=== PATIENT | female | born 1985 | race Caucasian/White ===

== ENCOUNTER → 2021-11-10 09:08 | Outpatient (BNVA) | payer OTHER, SELFPAY | PROVIDERS: PCP Registered Nurse; Referring Provider Registered Nurse; Visit Provider Surgery ==

== ENCOUNTER → 2021-11-12 08:05 | Outpatient (BNVA) | payer OTHER, SELFPAY | PROVIDERS: PCP Registered Nurse; Visit Provider Dietitian, Registered | DX: E66.9 Obesity, unspecified (principal); Z68.36 Body mass index [BMI] 36.0-36.9, adult | CPT/HCPCS: 97802 ==

== ENCOUNTER → 2021-11-13 16:30 | Outpatient (BNVA) | payer OTHER, SELFPAY | PROVIDERS: PCP Registered Nurse; Visit Provider Counselor Mental Health | DX: F50.81 Binge eating disorder (principal) | CPT/HCPCS: 90791 ==

== ENCOUNTER 2021-11-14 12:56 | Outpatient (REF) | payer OTHER, SELFPAY ==
--- NOTE | ~2021-11-14 | XR_ITS ---
EXAMINATION: XR CHEST CLINICAL INFORMATION: Obesity COMPARISON: None TECHNIQUE: 2 views of the chest were obtained. FINDINGS: No significant abnormality is noted involving the heart, lungs, mediastinum, bony thorax or soft tissues. XR/XR chest 2V IMPRESSION: Unremarkable examination.
--- NOTE | 2021-11-14 15:28 | ECG_ITS ---
Test Reason : E66.9 Blood Pressure : / mmHG Vent. Rate : 084 BPM Atrial Rate : 084 BPM P-R Int : 134 ms QRS Dur : 078 ms QT Int : 376 ms P-R-T Axes : 025 029 -03 degrees QTc Int : 444 ms Normal sinus rhythm Normal ECG No previous ECGs available Referred By: Jennifer Chi Electronically Signed By:Thor Mays
== END 2021-11-14 12:57 | disposition home or self-care (01) ==
LOC: HO.XRAY 12:56
PROVIDERS: PCP Registered Nurse; Referring Provider Registered Nurse; Visit Provider Surgery
DX: E66.9 Obesity, unspecified (principal); Z68.36 Body mass index [BMI] 36.0-36.9, adult; K21.9 Gastro-esophageal reflux disease without esophagitis; G47.33 Obstructive sleep apnea (adult) (pediatric); Z99.89 Dependence on other enabling machines and devices
CPT/HCPCS: 71046; 93005

== ENCOUNTER → 2021-11-17 08:05 | Outpatient (BNVA) | payer OTHER, SELFPAY | PROVIDERS: PCP Registered Nurse; Visit Provider Surgery ==

== ENCOUNTER 2021-11-24 11:01 | Outpatient (REF) | payer OTHER, SELFPAY ==
[2021-11-26 16:18] LABS: H Pylori Breath Test Negative (Negative)
== END 2021-11-24 11:02 | disposition home or self-care (01) ==
LOC: CF 11:01
PROVIDERS: Visit Provider Surgery
DX: Z11.0 Encounter for screening for intestinal infectious diseases (principal)
CPT/HCPCS: 36415; 83013; 99211

== ENCOUNTER 2021-11-27 06:06 | Inpatient (IN) | payer OTHER, SELFPAY ==
[2021-11-17 09:28] VITALS: BMI 35.6
[2021-11-18 10:53] LABS: MANUAL DIFF FLAG NO
[2021-11-18 11:02] LABS: Basophils Percent Auto 0.6 % (0-2); Eosinophils Absolute Auto 0.1 X10*3/uL (0.0-0.4); Eosinophils Percent Auto 1.2 % (0-4); Hematocrit 43.2 % (37.0-47.0); Imm Gran Abs Auto 0.02 X10*3/uL (0.00-0.03); Imm Gran Pct Auto 0.3 % (0.0-0.4); Lymphocytes Absolute Auto 1.8 X10*3/uL (1.2-4.9); Lymphocytes Percent Auto 27.1 % (20-40); Mean Corpuscular HGB Conc 32.4 g/dl (31.0-35.0); Mean Corpuscular Volume 89.6 fL (80.0-98.0); Mean Platelet Volume 9.3 fL (9.4-12.3); Monocytes Absolute Auto 0.5 X10*3/uL (0.1-1.2); Monocytes Percent Auto 7.3 % (2-11); Neutrophils Absolute Auto 4.3 x10*3/uL (2.0-8.3); Neutrophils Percent Auto 63.5 % (45-73); Platelet Count 265 X10*3/uL (160-400); Red Blood Count 4.82 X10*6/uL (4.20-5.50); Red Cell Distribution Width 12.8 % (11.0-16.0); White Blood Count 6.8 X10*3/uL (4.8-10.8)
[2021-11-18 11:11] LABS: INTERNATIONAL NORM RATIO 1.1 (0.9-1.1)
[2021-11-18 11:14] LABS: Partial Thromboplastin Time 38.7 SEC (24.1-38.0)
[2021-11-18 11:17] LABS: Estimated Average Glucose 105 mg/dL; Hemoglobin A1c % 5.3 %
[2021-11-18 11:42] LABS: Alanine Aminotransferase 19 U/L (0-31); Albumin Level 4.4 g/dL (3.5-5.0); Alkaline Phosphatase 70 U/L (39-117); Anion Gap 13 (12-20); Aspartate Amino Transferase 17 U/L (5-31); Bilirubin Total 0.5 mg/dL (0.0-1.0); Blood Urea Nitrogen 12 mg/dL (9-16); C Reactive Protein 0.28 mg/dL (< or = 0.50); Calcium 9.6 mg/dL (8.4-10.2); Carbon Dioxide 25 mmol/L (22-29); Chloride 104 mmol/L (96-108); Cholesterol 197 mg/dL; Creatinine Clr Calc Pharmacy 110.8; Estimated Glomerular Filt Rate > 60; Glucose Random 92 mg/dL (60-115); HDL Cholesterol 33 mg/dL; LDL Cholesterol Calculated 140 mg/dl; Potassium 4.2 mmol/L (3.3-5.1); Sodium 138 mmol/L (135-145); Triglycerides 124 mg/dL
[2021-11-18 12:05] LABS: Insulin 17 uU/mL (2-29); TSH reflex Free T4 1.29 uIU/mL (0.32-4.0)
--- NOTE | 2021-11-22 01:48 | P.HPSUR_ITS ---
Pre-Procedural Eval Section A Date of Service: 11/22/21 The patient is an INPATIENT: Yes The History & Physical has been completed within 30 days and I have reviewed it.: Yes Section B Chief Complaint: obesity Relevant Family History (Specify if Yes): No Relevant Social History: None Present Medications: None Medical History: No relevant PMH History of Previous Operations: No relevant previous surgery Allergies: Allergies Allergy/AdvReac Type Severity Reaction Status Date / Time latex Allergy Mild mild Verified 11/17/21 10:46 sensitivity w/latex gloves Review of Systems Sugical H&P ROS: Negative: Constitution, Cardiovascular, Respiratory, Neurological, Psychiatric, Hem-Onc, Allergic/Immunologic, Gastrointestinal, Genitourinary, Musculoskeletal, Integumentary, Endocrine and Eyes/Ears/N ose/Throat Plan Diagnosis/Plan: Unchanged I have reviewed the history and physical and performed a pertinent physical examination on my patient. No changes have occurred unless specified.
--- NOTE | 2021-11-26 08:14 | P.CONAN_ITS ---
Documented by User: Alayna Amanda NP 11/26/21 08:15 HPI - Anesthesia Eval Consult details Narrative: 36yo F for Gastrectomy Sleeve,EGD,poss diaphragmatic hernia,poss ventral hernia,poss open, PMFSH Active Problems Active Problems: All Active Problems (Updated 11/18/21 @ 18:09 by Shaquille Oleary MD) Constipation (Acute) Obesity (Acute) BMI 36.0-36.9,adult (Acute) Binge-eating disorder, mild (Acute) Back pain (Acute) Migraines (Acute) Depression (Acute) GERD (gastroesophageal reflux disease) (Acute) Obstructive sleep apnea on CPAP (Acute) Past Medical History Medical History (Updated 11/27/21 @ 09:58 by Shaquille Oleary MD) Back pain COVID-19 vaccine series completed Depression GERD (gastroesophageal reflux disease) Heart murmur Hiatal hernia History of COVID-[address] Obstructive sleep apnea on CPAP Surgical History Surgical History (Updated 11/27/21 @ 09:58 by Shaquille Oleary MD) Hx of section Hx of colonoscopy Social History Social History (Updated 11/10/21 @ 09:21 by Birgit Samson LPN) Are you a primary child care centre director to a significant other at home: No Do you presently have visiting nurse or other home services: No Alcohol intake: current Alcohol intake frequency: does not drink Patient Tobacco Use Status: Never used Tobacco Use of substances other than those prescribed or required for medical reasons: No Currently Displaying Signs/Symptoms of Drug Intoxication Withdrawal: No Have you been hit, kicked, punched, or otherwise hurt by someone within the past year? If so, by whom?: No Are you DNR?: No Advance Directives: No (states primary contact is boyfriend) Advance Directives Information Provided: Yes (brochure mailed) Advance Directives on File: No Recently lost weight without trying: No Eating poorly because of decreased appetite: No Nutrition Risks: No Nutritional Risk Patient : No FDLMP: 10/18/21 : No Poor oral hygiene: No Meds Allergies Allergy/AdvReac Type Severity Reaction Status Date / Time latex Allergy Mild mild Verified 11/17/21 10:46 sensitivity w/latex gloves Home Medications Medication Instructions Recorded Confirmed Last Taken Type cetirizine 10 mg tablet (Zyrtec) 10 mg PO DAILY 11/10/21 11/17/21 11/27/21 History cholecalciferol (vitamin D3) 25 50 mcg PO DAILY 11/10/21 11/17/21 Unknown History mcg (1,000 unit) tablet desvenlafaxine succinate 100 mg 100 mg PO DAILY 11/10/21 11/17/21 Unknown History tablet,extended release 24 hr (Pristiq) multivitamin 1 tab PO DAILY 11/10/21 11/17/21 Unknown History psyllium husk (with sugar) 2.5 2 wafer PO DAILY 11/10/21 11/17/21 Unknown History gram oral wafer (Metamucil Fiber Thin) etonogestrel 68 mg subdermal 68 mg SUBDERMAL ONCE 11/17/21 11/17/21 11/17/21 History implant (Nexplanon) Exam Exam Date and Time: November 26, [id number] Height,Weight and Vital Signs: Height 5 ft 3 in Weight 91.172 kg Pertinent Lab Results Pertinent Lab Results: Laboratory Tests 11/18/21 11/18/21 11/18/21 10:50 10:50 10:50 WBC 6.8 RBC 4.82 Hgb 14.0 Hct 43.2 MCV 89.6 MCH 29.0 MCHC 32.4 RDW 12.8 Plt Count 265 MPV 9.3 L Immature Gran % (Auto) 0.3 Neut % (Auto) 63.5 Lymph % (Auto) 27.1 [place] % (Auto) 7.3 Eos % (Auto) 1.2 Baso % (Auto) 0.6 Lymph # (Auto) 1.8 [place] # (Auto) 0.5 Eos # (Auto) 0.1 Baso # (Auto) 0.0 Abs Immat Gran (auto) 0.02 Absolute Neuts (auto) 4.3 Absolute Nucleated RBC 0.000 Nucleated RBC % (auto) 0.0 PT 13.0 INR 1.1 APTT 38.7 H Sodium 138 Potassium 4.2 Chloride 104 Carbon Dioxide 25 Anion Gap 13 BUN 12 Creatinine 0.76 Estim Creat Clear Calc 110.8 Estimated GFR > 60 Random Glucose 92 Estimat Average Glucose Hemoglobin A1c % Insulin Level 17 Calcium 9.6 Total Bilirubin 0.5 AST 17 ALT 19 Alkaline Phosphatase 70 C-Reactive Protein 0.28 Total Protein 7.0 Albumin 4.4 Triglycerides 124 Cholesterol 197 LDL Cholesterol, Calc 140 HDL Cholesterol 33 TSH 1.29 Blood Type Antibody Screen 11/18/21 11/18/21 10:50 10:50 WBC RBC Hgb Hct MCV MCH MCHC RDW Plt Count MPV Immature Gran % (Auto) Neut % (Auto) Lymph % (Auto) [place] % (Auto) Eos % (Auto) Baso % (Auto) Lymph # (Auto) [place] # (Auto) Eos # (Auto) Baso # (Auto) Abs Immat Gran (auto) Absolute Neuts (auto) Absolute Nucleated RBC Nucleated RBC % (auto) PT INR APTT Sodium Potassium Chloride Carbon Dioxide Anion Gap BUN Creatinine Estim Creat Clear Calc Estimated GFR Random Glucose Estimat Average Glucose 105 Hemoglobin A1c % 5.3 Insulin Level Calcium Total Bilirubin AST ALT Alkaline Phosphatase C-Reactive Protein Total Protein Albumin Triglycerides Cholesterol LDL Cholesterol, Calc HDL Cholesterol TSH Blood Type O Positive Antibody Screen NEGATIVE Narrative Narrative: EKG 11/2021 Vent. Rate : 084 BPM ? ? Atrial Rate : 084 BPM ?? P-R Int : 134 ms? QRS Dur : 078 ms ? ? QT Int : 376 ms ? ? ? P-R-T Axes : 025 029 -03 degrees ?? QTc Int : 444 ms ? Normal sinus rhythm Normal ECG No previous ECGs available Assessment and Plan Assessment Anesthesia Assessment: Chart Reviewed Documented by User: Thanh Negrete MD 11/27/21 16:40 [facility] Past Medical History Medical History (Updated 11/27/21 @ 09:58 by Shaquille Oleary MD) Back pain COVID-19 vaccine series completed Depression GERD (gastroesophageal reflux disease) Heart murmur Hiatal hernia History of COVID-[address] Obstructive sleep apnea on CPAP Functional capacity: independent ambulation Family History Family history of problems with anesthesia: No Surgical History Surgical History (Updated 11/27/21 @ 09:58 by Shaquille Oleary MD) Hx of section Hx of colonoscopy History of Problems with Anesthesia: No Social History Social History (Updated 11/10/21 @ 09:21 by Birgit Samson LPN) Are you a primary child care centre director to a significant other at home: No Do you presently have visiting nurse or other home services: No Alcohol intake: current Alcohol intake frequency: does not drink Patient Tobacco Use Status: Never used Tobacco Use of substances other than those prescribed or required for medical reasons: No Currently Displaying Signs/Symptoms of Drug Intoxication Withdrawal: No Have you been hit, kicked, punched, or otherwise hurt by someone within the past year? If so, by whom?: No Are you DNR?: No Advance Directives: No (states primary contact is boyfriend) Advance Directives Information Provided: Yes (brochure mailed) Advance Directives on File: No Recently lost weight without trying: No Eating poorly because of decreased appetite: No Nutrition Risks: No Nutritional Risk Patient : No FDLMP: 10/18/21 : No Poor oral hygiene: No Meds Allergies Allergy/AdvReac Type Severity Reaction Status Date / Time latex Allergy Mild mild Verified 11/17/21 10:46 sensitivity w/latex gloves Home Medications Medication Instructions Recorded Confirmed Last Taken Type cetirizine 10 mg tablet (Zyrtec) 10 mg PO DAILY 11/10/21 11/17/21 11/27/21 History cholecalciferol (vitamin D3) 25 50 mcg PO DAILY 11/10/21 11/17/21 Unknown History mcg (1,000 unit) tablet desvenlafaxine succinate 100 mg 100 mg PO DAILY 11/10/21 11/17/21 Unknown History tablet,extended release 24 hr (Pristiq) multivitamin 1 tab PO DAILY 11/10/21 11/17/21 Unknown History psyllium husk (with sugar) 2.5 2 wafer PO DAILY 11/10/21 11/17/21 Unknown History gram oral wafer (Metamucil Fiber Thin) etonogestrel 68 mg subdermal 68 mg SUBDERMAL ONCE 11/17/21 11/17/21 11/17/21 History implant (Nexplanon) Exam Airway Mallampati Class: II TM Dist: >3cm Neck ROM: Full Loose/Missing/Broken Teeth: Yes Heart: rrr Lungs: bl breath sounds Assessment and Plan Assessment Anesthesia Assessment: Anesthesia Plan Discussed Final Anesthetic Review Family History of Problems with Anesthesia: No History of Problems with Anesthesia: No NPO: Yes ASA Class: III Final Preanesthetic Review: Meds/Allgs Chart Reviewed, Consent Obtained/Reviewed and Anes Risks/Benef Reviewed Patient Risk: High Procedure Risk: Intermediate Anesthetic Plan Anesthetic Plan: GA Disposition: Inp. Admit - Standard Bed
[2021-11-26 12:26] LABS: COVID-19 Test Negative (Negative)
[2021-11-27] VITALS (17 sets, daily range): BP systolic 99–160; BP diastolic 62–99; PULSE 105–134; RESP 14–20; TEMP 36.1–37.1; O2SAT 94–100
[2021-11-27 06:32] LABS: UPreg QC Valid YES; Urine Pregnancy NEGATIVE (NEGATIVE)
[2021-11-27] MEDS: Lactated Ringers 1,000 ML 100 ML IVCONT ×3 (06:52→20:45)
[2021-11-27] MEDS: Lactated Ringers 1,000 ML 999 ML IV (06:53)
--- NOTE | 2021-11-27 09:52 | PM.OP ---
Brief Operative Note Date of Service: 11/27/21 Pre-op diagnosis: Severe obesity with comorbidities (see below) Post-op diagnosis: same Procedure: INITIAL PATIENT BMI ON PRESENTATION AT OUR OFFICE: 36.3 kg/m2 LAST BMI BEFORE SURGERY: 35.5 kg/m2 COMORBIDITIES: sleep apnea on CPAP, GERD, Depression, back pain, migraines, diaphragmatic hernia ?The patient presented to the Weight Management Program with significant obesity that was negatively impacting the patient's comorbidities as listed above.? The program is a phased program with a special focus on preoperative medical weight management to promote substantial weight loss and prepare the patients for the second phase of the program: bariatric surgery. The patient participated in an intensive weekly lifestyle ?intervention and exercise program during which the patient ?has lost between the initial office visit and the last preoperative visit 4 lbs, or 1.96% of initial actual body weight. It was deemed appropriate for the patient to now have bariatric surgery. In light of the current Covid-19 pandemic and the well documented strong association of obesity and increased risk of worse outcomes if infected with Covid-19 (REFERENCES:https://pubmed.ncbi.nlm.nih.gov/82911113/,?https://pubmed.ncbi.nlm.nih.gov/21442332/), any delay in undergoing bariatric surgery may lead to the patient's worsening health condition and increased?risk of more severe Covid-19 disease if infected. In addition a recent?study from [facility] published in [employer] on 09/08/2021 ([email or web address]) found that, among patients with obesity, substantial weight loss achieved with surgery was associated with improved outcomes of COVID-19 infection. The findings suggest that obesity can be a modifiable risk factor for the severity of COVID-19 infection. In addition, the patient met the BMI-criteria for bariatric surgery based on the BMI on initial presentation. The patient should not be penalized for achieving such weight loss because ?it is not sustainable long-term without surgical intervention and it was achieved in preparation for bariatric surgery ?under my direction and based on my published research ([email or web address] and?https://www.soard.org/article/[email or web address](71)69131-X/pdf) ?that a 10% preoperative weight loss improves long-term weight loss after surgery and reduces perioperative complications.? Insurance carriers such as [facility] have endorsed my recommendations ?and have included in their policies criteria to include a 10% preoperative weight loss requirement. PROCEDURE: Esophago-gastroscopy, laparoscopic sleeve gastrectomy and laparoscopic gastropexy INDICATIONS: This is a 36 year-old female who was electively scheduled for laparoscopic, possibly open sleeve gastrectomy. The risks and complications of the procedure were discussed with the patient in advance, particularly the possibility of ; pulmonary embolism; staple line leak; bleeding; GERD; cardiac, pulmonary, or renal complications; as well as long-term problems such as insufficient weight loss, vitamin deficiency, strictures, or ulcers. The patient understood all the risks, and was in agreement to proceed with surgery. DESCRIPTION OF PROCEDURE: After informed consent was obtained from the patient, the patient was given preoperative antibiotics, and was transferred to the operating room. After successful induction of general anesthesia, pneumatic compression devices were placed on both lower extremities. An upper endoscopy was performed next. The oropharynx and esophagus appeared to be within normal limits. There was no diaphragmatic hernia present. The stomach was entered. Then after all fluid and air were suctioned and the stomach was fully decompressed, the scope was withdrawn and secured in the mid esophagus. The patient was then prepped and draped in the usual sterile manner, and abdominal access was established at the right upper quadrant with the Emir technique. A 12 mm blunt port was inserted, and the abdomen was insufflated with CO2 to a pressure of 15 mmHg. Under direct visualization, additional ports were placed, specifically two 5 mm Versi-step ports to the left upper quadrant, and a 5 mm Versi-Step port to the right upper quadrant. 1% lidocaine plain was used to infiltrate all port sites as well as all fascia defects. Following that, the patient was placed in a steep reverse Trendelenburg position. An additional 5 mm port was placed to the right flank for the Mediflex retractor that was used to retract the left lobe of the liver. The gastro-esophageal fat pad was opened with the ultrasonic device (Thsravanerbeat, Olympus) and the anterior esophagus and hiatus were exposed. The angle of His was opened with the ultrasonic device the fundus of the stomach from any diaphragmatic and splenic attachments. I then opened the gastrocolic ligament between the transverse colon and the greater curvature of the stomach with the ultrasonic device to enter the lesser sac and facilitate the ligation of the short gastric vessels. I started at a mid-point along the greater curvature and using the Thunderbeat, all short gastric vessels were divided all the way to the angle of His until the left qi was completely dissected at its entirety. I then divided the gastro-colic ligament distally to a distance of about 3-4 cm proximal to the pylorus. The stomach was then divided transversely with one Endo RAINA-45 purple, one RAINA-45 orange load and four RAINA-60 articulating orange loads using the AEON stapler and loads. Every effort was made that the gastric sleeve had a tubular shape and an even caliber throughout. Once the sleeve resection was completed, the staple line of the gastric sleeve was reinforced with Hemoclips. The resected stomach was retrieved without difficulty from the Emir port. A gastropexy was then performed in order to prevent postoperative GERD and partial gastric volvulus. Several interrupted 2.0 Surgidac sutures were placed between the sleeve's staple line and the previously divided greater omentum and gastro-colic ligament using the Endo-Stitch device. ?An upper endoscopy was performed. There was no narrowing at the GE junction. The scope was easily advanced all the way to the pylorus which was clearly visualized. There was no narrowing anywhere and the sleeve's caliber was even throughout. The sleeve's staple line was inspected and there was no evidence of ischemia, bleeding or dehiscence. At that point the gastroscope was withdrawn from the patient?s mouth while we were decompressing the bowel and the stomach from any remaining air. I looked into the lesser sac to see how the sleeve was situating and it was situating well. There was no bleeding from the staple line, spleen, or short gastric vessels. The Mediflex retractor was removed, and the undersurface of the liver was inspected and there was no bleeding. The patient was placed in supine position. I closed the fascial defect of the 12 mm port site with a figure of eight #1 Polysorb suture. Then 100 cc 0.25 % Marcaine plain with 10 mg of Dexamethasone were used to infiltrate the fascial closure as well as all skin incisions. At this point, the abdomen was deflated, all ports were removed under direct vision, and no bleeding was noted from any of the port sites. The skin incisions were irrigated with saline and were closed with 4-0 absorbable monofilament sutures. Steri-Strips and OpSites were used to cover all incisions. The patient was extubated and was transferred in stable condition to the recovery room for further care. I was present and performed all pope parts of the procedure. 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 There were no residents to assist with this case. Rosas Oleary MD, PhD, FACS Surgeon: Shaquille Oleary MD Anesthesia: GETA, local and other (TAP block) Was an Quality Assistant used for this Procedure?: Yes Quality Assistant: Meghan Perez Estimated blood loss (mL): 10 IV fluids (mL): 3,000 Urine output (mL): 0 (No Paredes to gravity) Pathology: other (Stomach) Condition: stable Disposition: PACU
--- NOTE | 2021-11-27 09:56 | PM.PNGS ---
Subjective Subjective Date of Service: 11/27/21 Interval history: Patient has mild incisional pain, but was able to ambulate and use the incentive spirometer. She is tolerating phase 1 bariatric diet Physical Exam Vital Signs: Vital Signs: Last Vital Signs Temp 97 F 11/27/21 06:09 Pulse 108 H 11/27/21 06:09 Resp 17 11/27/21 06:09 BP 132/80 11/27/21 06:09 Pulse Ox 97 11/27/21 06:09 BMI result Body Mass Index 35.6 GI: Inspection: Yes normal to inspection, Yes incision (clean, dry and intact ) and Yes obesity Extrem: Right lower extremity: normal to inspection (no calf tenderness) Left lower extremity: normal to inspection (no calf tenderness) Objective Data Active Medications Fentanyl (Fentanyl Citrate/Pf 100 Mcg/2 Ml Vial) 25 mcg IVPUSH Q5M PRN; Protocol PRN Reason: Pain, Moderate (Pain Scale 4-6 Hydromorphone HCl (Hydromorphone Hcl 0.5 Mg/0.5 Ml Syringe) 0.25 mg IVPUSH Q5M PRN; Protocol PRN Reason: Pain, Severe (Pain Scale 7-10) Lactated Ringer's (Lr) 1,000 mls @ 100 mls/hr IVCONT .Q10H LAYO Last Admin: 11/27/21 06:52 Dose: 100 mls/hr Documented by: ELIO Promethazine HCl 12.5 mg/ (Sodium Chloride) 50.5 mls @ 202 mls/hr IV ONCE PRN PRN Reason: Nausea and Vomiting Labs CBC & Chem 7: 11/18/21 10:50 11/18/21 10:50 Labs: Laboratory Results - last 24 hr 11/26/21 11/27/21 12:00 06:17 Urine Test NEGATIVE COVID-19 (CARLYLE) Negative COVID-19 Clin Com See Note Progress Note: A&P Assessment and plan (1) Status post sleeve gastrectomy: Status: Acute Assessment and Plan: s/p laparoscopic sleeve gastrectomy, lysis of adhesions repair of diaphragmatic hernia, and gastropexy Doing well Check am labs. If OK, will discharge home? (2) Obesity: Status: Acute (3) BMI 35.0-35.9,adult: Status: Acute (4) GERD (gastroesophageal reflux disease): Status: Acute (5) Obstructive sleep apnea on CPAP: Status: Acute (6) Depression: Status: Acute (7) Migraines: Status: Acute (8) Back pain: Status: Acute (9) Diaphragmatic hernia: Status: Acute Fall Risk Details Current Medications: Current Medications Fentanyl (Fentanyl Citrate/Pf 100 Mcg/2 Ml Vial) 25 mcg IVPUSH Q5M PRN; Protocol PRN Reason: Pain, Moderate (Pain Scale 4-6 Hydromorphone HCl (Hydromorphone Hcl 0.5 Mg/0.5 Ml Syringe) 0.25 mg IVPUSH Q5M PRN; Protocol PRN Reason: Pain, Severe (Pain Scale 7-10) Lactated Ringer's (Lr) 1,000 mls @ 100 mls/hr IVCONT .Q10H LAYO Last Admin: 11/27/21 06:52 Dose: 100 mls/hr Documented by: Promethazine HCl 12.5 mg/ (Sodium Chloride) 50.5 mls @ 202 mls/hr IV ONCE PRN PRN Reason: Nausea and Vomiting Time Spent With Patient Time: Total time spent is greater than 50% in coordination of care (as documented) at patient's floor/unit and/or counseling patient: Quality Stroke Does the patient have a stroke diagnosis?: No VTE Prior VTE?: No VTE Risk Level:: Surgical - moderate VTE Device Contraindication: N/A - Device Ordered VTE Drug Contraindication: Treatment Not Indicated
--- NOTE | 2021-11-27 10:06 | PM.DS ---
DS: Providers Provider Date of Service: 11/28/21 Date of admission: 11/27/21 06:06 Primary care physician: JANET Galarza DS: Diagnosis Discharge Diagnosis (1) Status post sleeve gastrectomy: Status: Acute (2) Obesity: Status: Acute (3) BMI 35.0-35.9,adult: Status: Acute (4) GERD (gastroesophageal reflux disease): Status: Acute (5) Obstructive sleep apnea on CPAP: Status: Acute (6) Depression: Status: Acute (7) Migraines: Status: Acute (8) Back pain: Status: Acute (9) Diaphragmatic hernia: Status: Acute DS: Summary Hospital Course Hospital Course: ADMITTING DIAGNOSIS: morbid obesity, JOYCE, migraines DISCHARGE DIAGNOSIS: same, s/p laparoscopic sleeve gastrectomy PAST SURGICAL HISTORY: section PROCEDURE: upper endoscopy, laparoscopic sleeve gastrectomy DISCHARGE SUMMARY: History of Present Illness: The patient is a 36 year-old woman with a BMI of 36.2 kg/m2 and associated co-morbidities as described above. The patient had extensive work-up, preoperatively and was electively scheduled for laparoscopic, possible open sleeve gastrectomy and gastropexy. Risks and complications of the surgery were discussed with the patient in advance, particularly the possibility of , pulmonary embolism, anastomotic leak, bleeding, bowel injury, GERD, cardiac, renal or pulmonary complications. The patient understood all the risks and was in agreement with the surgical plan. Hospital Course: The patient underwent an uneventful laparoscopic sleeve gastrectomy with gastropexy on the day of admission. Postoperatively, the patient was transferred to the surgical floor. The patient received IV Acetaminophen and IV dilaudid for pain control. Patient was started on bariatric phase 1 diet POD #0. On postoperative day one, the patient was feeling well without nausea, vomiting, fevers, or tachycardia. The patient had some mild incisional pain and the abdomen was soft. On the morning of postoperative day one, the patient was continued on 1 ounce of water or ice every half hour. During the day, the patient did fairly well, having some incisional pain, but able to ambulate adequately and to tolerate liquids well. Since the patient is doing well, we decided that the patient was ready to be discharged. The patient was given instructions to follow-up with me next week and to call my office for any fever over 101, persistent abdominal pain, nausea, vomiting, GERD, symptoms of DVT such as calf tenderness, or leg swelling, or pulmonary embolism such as chest pain or shortness of breath. The patient was also instructed to drink 40-60 ounces of liquids per day using the 1-ounce cups. The patient had been given prescriptions for Tylenol for pain, Zofran prn for nausea, and pantoprazole and carafate previously. The patient was encouraged to ambulate and use the incentive spirometer. The patient was allowed to shower, but no baths, and encouraged to stay active at home. All of these instructions were given to the patient personally. All questions were answered and the patient understood all instructions, the instructions were also given to the patient in print. Time Spent with Patient Time attestation: Total time spent providing and/or coordinating discharge services: Discharge coordination time: Less than 30 minutes Quality: Stroke Does the patient have a stroke diagnosis?: No Physical Exam Vital Signs: Vital Signs: Last Vital Signs Temp 97.1 F 11/27/21 10:00 Pulse 107 H 11/27/21 10:00 Resp 17 11/27/21 10:00 BP 114/71 11/27/21 10:00 Pulse Ox 97 11/27/21 10:00 BMI result Body Mass Index 35.6 DS: Data Data Completed and Pending Pending studies at discharge: Pending at discharge 11/27/21 09:07 Surgical [PTH] Routine Labs on day of discharge: Laboratory Results - last 24 hr 11/26/21 11/27/21 12:00 06:17 Urine Test NEGATIVE COVID-19 ([facility]) Negative COVID-19 Clin Com See Note Discharge Plan Discharge Anticipated Discharge Date/Time: 11/28/21 10:04 Patient Disposition: Home, Self-Care Discharge Diagnosis: s/p sleeve gastrectomy Referrals: Jennifer Chi FNP [Primary Care Provider] - 1 Week Discharge Medications: Continued Nexplanon 68 mg Implant 68 mg SUBDERMAL ONCE 0RF desvenlafaxine succinate [Pristiq] 100 mg tablet extended release 24 hr 100 mg PO DAILY 0RF cetirizine [Zyrtec] 10 mg tablet 10 mg PO DAILY 0RF pantoprazole 40 mg tablet,delayed release (DR/EC) 40 mg PO DAILY Qty: 30 2RF sucralfate 100 mg/mL suspension 10 ml PO BID Qty: 400 2RF ondansetron HCl 4 mg tablet 4 mg PO Q12H Qty: 20 0RF Discontinued docusate sodium [Colace] 100 mg capsule 100 mg PO DAILY Qty: 30 2RF cholecalciferol (vitamin D3) 25 mcg (1,000 unit) tablet 50 mcg PO DAILY 0RF Metamucil Fiber Thin 2.5 gram wafer 2 wafer PO DAILY 0RF multivitamin Tablet 1 tab PO DAILY 0RF polyethylene glycol 3350 [Miralax] 17 gram powder in packet 17 g PO DAILY Qty: 14 0RF Rx Instructions: Mix each packet with 8oz of water and do 7 packets on 11/25/21 and another 7 packets on 11/26/21 Discharge Orders: Discharge Order (Routine); Ordered 11/28/21 Ordered By: Meghan Perez Diet: other Activity on Discharge: No heavy lifting Stand Alone Forms: Patient Portal Discharge page Care Plan Goals: No tub baths, sex or returning to work until discussed at first post op appointment. No exercise, alcohol, tobacco or illegal drug use. Continue to use incentive spirometer hourly while awake. Walk in home for 5- 10 minutes every 2 hours during the first week. Continue phase 1 diet today and start phase 2 diet tomorrow morning. Follow all instructions in the bariatric handbook and call with any questions. 1. Please call your doctor or come back to the emergency room should any new symptoms arise. 2. You will receive a courtesy call from [facility] 24-48 hours after discharge. 3. Activity: abstain from alcohol, practice limited stair climbing, no bending, no driving, no exercise, no illicit substances, no lifting, no sex, no tub bath, no work. 4. Diet: continue as discussed with Dr. Oleary. 5. Dressing Change/Wound Care: Do not change or remove surgical dressings unless they are wet or soiled. 6. Call your doctor if: - Your temperature exceeds 101.5 F - You experience excessive pain or swelling - You have an unexpected reaction to medication - You have excessive bleeding - You experience continued vomiting/nausea - Your incision begins to separate - Your incision shows signs of infection such as increased redness, swelling, excessive pain, heat, or drainage (light blood or clear fluid is normal) 7. General instructions: No lifting greater than 5 lbs for the next 4 weeks[address] within 24 hours of taking narcotic pain medications. If you do not move your bowels in the next 2 days, please take milk of magnesia over the counter. Please follow the post op diet and do not advance your diet until you are seen in the office in about 2 weeks. Please walk around your home every hour or two to prevent blood clots from forming in your legs. You do not need to wake from sleeping to walk. Please sleep in a bed or couch to prevent kinking at the hips and knees. Please take your incentive spirometer (your lung pipeline gang supervisor) home with you and use it for the next few days to prevent pneumonias. You may shower, no hot tubs, baths or swimming pools. Please call the office with any questions or concerns such as increasing abdominal pain, fever, chills, shortness of breath, chest pain, leg pain or swelling, or redness or drainage from your incisions. Do not hesitate to contact the office with any questions at . The patient's medical history has been reviewed and they are considered low risk for post op DVT and therefore DVT prophylaxis is not considered necessary. Travel after surgery was reviewed. The patient has not disclosed any travel plans during the first 30 days after surgery and they have been advised that within the first 30 days after surgery any bus, plane, train or car travel over 2 hours in duration is contraindicated due to the possibility of developing blood clots from immobility. Any travel, needs to include periods of ambulation of 10 minutes in duration every 2 hours. The patient was instructed to discuss any plans for travel during this period with their bariatric surgeon. Health Concerns: obesity Plan of Treatment: weight loss Assessment: stable, post op sleeve gastrectomy
[2021-11-27 10:31] LABS: Hematocrit 38.9 % (37.0-47.0); Hemoglobin 12.6 g/dl (12.0-16.0)
[2021-11-27 10:51] LABS: Anion Gap 12 (12-20); Blood Urea Nitrogen 8 mg/dL (9-16); Calcium 8.3 mg/dL (8.4-10.2); Carbon Dioxide 25 mmol/L (22-29); Chloride 105 mmol/L (96-108); Creatinine Clr Calc Pharmacy 109.3; Estimated Glomerular Filt Rate > 60; Glucose Random 142 mg/dL (60-115); Potassium 3.9 mmol/L (3.3-5.1); Sodium 138 mmol/L (135-145)
[2021-11-27] MEDS: Famotidine/PF 20 MG/2 ML VIAL IVPUSH ×2 (10:58→20:45)
[2021-11-27] MEDS: Metoclopramide HCl 10 MG/2 ML VIAL IVPUSH ×2 (13:10→19:07)
[2021-11-27] MEDS: ceFAZolin Sodium/Dextrose,Iso 2 GM/50 ML PIGGYBACK IV (13:32)
[2021-11-27] MEDS: ondansetron HCL 4 MG/2 ML VIAL IVPUSH (17:17)
[2021-11-28] VITALS: BP 133/72; PULSE 107; RESP 14; TEMP 36.3; O2SAT 96
[2021-11-28] MEDS: ondansetron HCL 4 MG/2 ML VIAL IVPUSH ×2 (00:10→08:56)
[2021-11-28 04:00] VITALS: BP 108/58; PULSE 106; RESP 14; TEMP 36.6; O2SAT 91
[2021-11-28] MEDS: Metoclopramide HCl 10 MG/2 ML VIAL IVPUSH (05:14)
[2021-11-28] MEDS: Lactated Ringers 1,000 ML 100 ML IVCONT (05:19)
[2021-11-28 06:03] LABS: MANUAL DIFF FLAG NO
[2021-11-28 06:09] LABS: Basophils Percent Auto 0.2 % (0-2); Eosinophils Percent Auto 0.1 % (0-4); Hematocrit 37.3 % (37.0-47.0); Hemoglobin 12.5 g/dl (12.0-16.0); Imm Gran Abs Auto 0.06 X10*3/uL (0.00-0.03); Imm Gran Pct Auto 0.5 % (0.0-0.4); Lymphocytes Absolute Auto 1.3 X10*3/uL (1.2-4.9); Mean Corpuscular HGB Conc 33.5 g/dl (31.0-35.0); Mean Corpuscular Hemoglobin 29.8 pg (27.0-33.0); Mean Corpuscular Volume 88.8 fL (80.0-98.0); Monocytes Percent Auto 7.8 % (2-11); Neutrophils Absolute Auto 10.6 x10*3/uL (2.0-8.3); Neutrophils Percent Auto 81.4 % (45-73); Platelet Count 264 X10*3/uL (160-400); Red Cell Distribution Width 12.7 % (11.0-16.0); White Blood Count 13.1 X10*3/uL (4.8-10.8)
[2021-11-28 06:27] LABS: Anion Gap 11 (12-20); Blood Urea Nitrogen 7 mg/dL (9-16); Calcium 9.1 mg/dL (8.4-10.2); Carbon Dioxide 24 mmol/L (22-29); Chloride 107 mmol/L (96-108); Creatinine Clr Calc Pharmacy 120.2; Estimated Glomerular Filt Rate > 60; Glucose Random 96 mg/dL (60-115); Potassium 3.6 mmol/L (3.3-5.1); Sodium 138 mmol/L (135-145)
--- NOTE | 2021-11-28 06:50 | HO.POSTANES ---
Post Anesthesia Evaluation Post Anesthesia Evaluation Vital Signs: Vital Signs Temp Pulse Resp BP Pulse Ox 11/28/21 04:00 97.8 F 106 H 14 108/58 L 91 L 11/28/21 00:00 97.3 F 107 H 14 133/72 96 11/27/21 20:00 98.7 F 134 H 18 99/62 97 Anesthesia: General Endotracheal-GETA Mental Status: Awake Pain Control: Satisfactory Nausea/Vomiting: None Hydration: Adequate Anesthesia-Related Issues: No Anes. Related Issues
[2021-11-28 08:00] VITALS: BP 130/74; PULSE 91; RESP 16; TEMP 36.3; O2SAT 98
[2021-11-28] MEDS: 0.9 % Sodium Chloride Flush 3 ML SYRINGE IVFLUSH (08:57)
--- NOTE | 2021-11-28 10:03 | MHC.CM.PN ---
EMR REVIEWED, PT ADMITTED S/P LAP SLEEVE GASTRECTOMY, CM MET W/PT WHO REPORTS SHE IS INDEP W/ALL CARE, USES A CPAP FOR DME AND NO HOME SERVICES, PT REPORTS SHE AND S.O. WILL BE STAYING WITH HIS PARENTS WHO LIVE LOCALLY THROUGH THE W/E BEFORE RETURNING TO [place]FSIDE, PT VERIFIES PCP MARCY BERRIOS, EDUCATED ON HCP 'S AND DECLINING AT THIS TIME. PT VERIFIES PFIZER VACCINE X3. D/C PLAN: HOME SLEF-CARE W/OUTPT FOLLOW-UP, S.O. FOR TRANSPORT.
== END 2021-11-28 09:39 | disposition home or self-care (01) | DRG 403 ==
LOC: HO.SSSA 10:06 → HO.S3 11:54
PROVIDERS: Nurse Practitioner; Physician Assistant; Physician Assistant Surgical; Admitting Provider Surgery; PCP Registered Nurse; Visit Provider Surgery
PROC: 0DB64Z3 Excision of Stomach, Percutaneous Endoscopic Approach, Vertical (ICD-10-PCS; CPT 43845; principal; 2021-11-27 07:30)
DX: E66.01 Morbid (severe) obesity due to excess calories (principal); F50.81 Binge eating disorder; G43.909 Migraine, unspecified, not intractable, without status migrainosus; F32.A Depression, unspecified; G47.33 Obstructive sleep apnea (adult) (pediatric); Z99.89 Dependence on other enabling machines and devices; Z68.35 Body mass index [BMI] 35.0-35.9, adult; M54.9 Dorsalgia, unspecified; K21.9 Gastro-esophageal reflux disease without esophagitis; Z20.822 Contact with and (suspected) exposure to COVID-19; Z86.16 Personal history of COVID-19; Z79.899 Other long term (current) drug therapy
CPT/HCPCS: 36415; 80048; 80053; 80061; 81025; 83036; 83525; 84443; 85014; 85018; 85025; 85610; 85730; 86140; 86850; 86900; 86901; 87635; 88307; 88342; A4649; J0131; J0690; J1100; J1170; J2250; J2370; J2405; J2550; J2765; J3010

== ENCOUNTER → 2021-12-02 12:25 | Outpatient (BNVA) | payer OTHER, SELFPAY | PROVIDERS: PCP Registered Nurse; Referring Provider Registered Nurse; Visit Provider Surgery | DX: E66.9 Obesity, unspecified (principal); Z68.32 Body mass index [BMI] 32.0-32.9, adult; Z71.3 Dietary counseling and surveillance; Z98.84 Bariatric surgery status | CPT/HCPCS: 99212 ==

== ENCOUNTER → 2021-12-10 17:08 | Outpatient (BNVA) | payer OTHER, SELFPAY | PROVIDERS: PCP Registered Nurse; Visit Provider Counselor Mental Health | DX: Z90.3 Acquired absence of stomach [part of] (principal); F50.81 Binge eating disorder | CPT/HCPCS: 90834 ==

== ENCOUNTER → 2021-12-17 13:15 | Outpatient (BNVA) | payer OTHER, SELFPAY | PROVIDERS: PCP Registered Nurse; Visit Provider Counselor Mental Health | DX: F50.81 Binge eating disorder (principal); Z90.3 Acquired absence of stomach [part of] | CPT/HCPCS: 90834 ==

== ENCOUNTER → 2021-12-22 11:35 | Outpatient (BNVA) | payer OTHER, SELFPAY | PROVIDERS: PCP Registered Nurse; Referring Provider Registered Nurse; Visit Provider Physician Assistant | DX: E66.9 Obesity, unspecified (principal); Z68.31 Body mass index [BMI] 31.0-31.9, adult; Z90.3 Acquired absence of stomach [part of]; Z71.3 Dietary counseling and surveillance | CPT/HCPCS: 99212 ==

== ENCOUNTER → 2022-01-05 11:00 | Outpatient (BNVA) | payer OTHER, SELFPAY | PROVIDERS: PCP Registered Nurse; Visit Provider Counselor Mental Health | DX: F50.81 Binge eating disorder (principal); Z98.84 Bariatric surgery status | CPT/HCPCS: 90834 ==

== ENCOUNTER → 2022-01-19 08:25 | Outpatient (BNVA) | payer OTHER, SELFPAY | PROVIDERS: PCP Registered Nurse; Visit Provider Physician Assistant | DX: E66.3 Overweight (principal) | CPT/HCPCS: 99212 ==

== ENCOUNTER → 2022-01-21 10:45 | Outpatient (BNVA) | payer OTHER, SELFPAY | PROVIDERS: PCP Registered Nurse; Visit Provider Counselor Mental Health | DX: F50.81 Binge eating disorder (principal); Z90.3 Acquired absence of stomach [part of] | CPT/HCPCS: 90834 ==

== ENCOUNTER → 2022-03-02 10:00 | Outpatient (BNVA) | payer OTHER, SELFPAY | PROVIDERS: PCP Registered Nurse; Visit Provider Counselor Mental Health | DX: F50.81 Binge eating disorder (principal); Z90.3 Acquired absence of stomach [part of] | CPT/HCPCS: 90834 ==

== ENCOUNTER → 2022-03-04 10:41 | Outpatient (BNVA) | payer OTHER, SELFPAY | PROVIDERS: PCP Registered Nurse; Visit Provider Dietitian, Registered | DX: E66.3 Overweight (principal); Z68.27 Body mass index [BMI] 27.0-27.9, adult | CPT/HCPCS: 97803 ==

== ENCOUNTER → 2022-03-30 11:32 | Outpatient (BNVA) | payer OTHER, SELFPAY | PROVIDERS: PCP Registered Nurse; Referring Provider Physician Assistant; Visit Provider Dietitian, Registered | DX: E66.3 Overweight (principal); Z98.84 Bariatric surgery status; Z71.3 Dietary counseling and surveillance | CPT/HCPCS: 97803 ==

== ENCOUNTER → 2022-07-15 11:46 | Outpatient (BNVA) | payer OTHER, SELFPAY | PROVIDERS: PCP Registered Nurse; Visit Provider Dietitian, Registered | DX: F50.81 Binge eating disorder (principal); Z68.24 Body mass index [BMI] 24.0-24.9, adult; Z90.3 Acquired absence of stomach [part of]; Z71.3 Dietary counseling and surveillance | CPT/HCPCS: 97803 ==

== ENCOUNTER → 2022-07-20 13:01 | Outpatient (BNVA) | payer OTHER, SELFPAY | PROVIDERS: PCP Registered Nurse; Visit Provider Physician Assistant Surgical | DX: Z90.3 Acquired absence of stomach [part of] (principal) | CPT/HCPCS: 99212 ==

== ENCOUNTER → 2022-08-24 13:20 | Outpatient (BNVA) | payer OTHER, SELFPAY | PROVIDERS: PCP Registered Nurse; Visit Provider Dietitian, Registered | DX: E66.9 Obesity, unspecified (principal); Z90.3 Acquired absence of stomach [part of]; Z71.3 Dietary counseling and surveillance | CPT/HCPCS: 97803 ==

== ENCOUNTER → 2022-11-09 11:44 | Outpatient (BNVA) | payer OTHER, SELFPAY | PROVIDERS: PCP Registered Nurse; Visit Provider Dietitian, Registered | DX: E66.9 Obesity, unspecified (principal); Z68.23 Body mass index [BMI] 23.0-23.9, adult; Z90.3 Acquired absence of stomach [part of] | CPT/HCPCS: 97803 ==

== ENCOUNTER 2023-03-29 11:29 | Outpatient (AMB) | payer OTHER, SELFPAY ==
--- NOTE | 2023-03-29 11:33 | MHC.OFFVISWM ---
Intake VS Expanded 03/29/23 11:36 Height 5 ft 3 in Weight 140 lb 3.2 oz BMI 24.8 BP 114/62 Blood Pressure Location Rt brachial Blood Pressure Position Sitting Pulse 80 Pulse Source Pulse Oximeter Temp 97.3 F Temperature Source Temporal Artery Scan Pulse Oximetry 100 Oxygen Delivery Method Room Air Body Fat 39.6 Body Fat Percentage 28.3 Free Fat Mass 100.4 Muscle Mass 95.2 Visceral Mass 4.0 Water Mass 71.8 BMR 1,365 Intake Visit Reasons: PO LSG 11/27/21 Allergies latex Allergy (Mild, Verified 03/29/23 11:38) mild sensitivity w/latex gloves Medication List - Last Reconciled 03/29/23 by TRENTON Burkett [id number] fumarate 600-125-18 mg-unit-mg tabs PO desvenlafaxine succinate ER (Pristiq) 100 mg PO DAILY yejdoqpfwxml-[id number]-FA-vit K 45 mg iron- 800 mcg-120 mcg (Bariatric Multivitamins) caps PO pantoprazole 20 mg PO DAILY psyllium husk (with sugar) 2.5 gram (Metamucil Fiber Thin) 2 wafers PO DAILY HPI HPI Comments History of Present Illness Details This?is a?37?yo female who is s/p LSG 11/27/2021. Presents for 16 month post op visit. Weight at last visit on 11/09/2022 was 135 pounds with a BMI of 23.9, weight today is 140.2 pounds, representing a 5.2 pound weight gain with a BMI today of 24.8.? No complaints of nausea, emesis, abdominal pain, or constipation. Started taking pantoprazole daily for reflux symptoms. Recognizes that triggers will make the heartburn worse like spicy foods or eating/drinking too quickly. Thought she might have had a RLQ hernia but has not been bothered by it in a few weeks. Present meal plan includes: breakfast- 1/2c vanilla burmese yogurt, 2 strawberries, adds a small amt earl seeds midmorning snack- may have a half bar 12pm lunch 3oz protein 3pm protein bar dinner 3oz salmon, veg snack kashi chocolate crunch cereal 1/2-3/4c , few bites of an apple tries to choose low sugar cheats often forgets MVI All meals last 20 - 30 minutes and does not drink and eat at the same time. Exercise routine includes: tries to walk in evenings- with daughter or dog, goes about 1 mile GERD: had before, occasional symptoms now- manageable, uses Tums JOYCE:? formerly wore CPAP, not wearing currently, has to have repeat sleep study DM:? never HTN:? never Hyperlipidemia:?never Post op complications:?none Heartburn symptoms? yes Score 0-5: 0=no symptoms, 1=noticeable but not bothersome (slight or occasional), 2=noticeable, bothersome but not daily, 3=bothersome and daily, 4=affects daily activities, 5=incapacitating, unable to do daily activities How bad is the heartburn: 3 Heartburn when lying down: 4 Heartburn when standing up: 3 Heartburn after meals: 3 Does heartburn change your diet: 3 Does heartburn wake you up from sleep: 1 Do you have difficulty swallowin Do you have pain with swallowin If you take medication for reflux, does this affect your daily life: 0 Total score: 17 PENDING SALE TO [facility] Medical History (Updated 01/19/22 @ 14:52 by Meghan Perez PA-C) Back pain Binge-eating disorder, mild BMI 35.0-35.9,adult BMI 36.0-36.9,adult Constipation COVID-19 vaccine series completed Depression Diaphragmatic hernia GERD (gastroesophageal reflux disease) Heart murmur Hiatal hernia History of COVID-[address] Obstructive sleep apnea on CPAP Surgical History Hx of section Hx of colonoscopy Status post sleeve gastrectomy Social History (Updated 12/22/21 @ 11:41 by Chanel Sung) Are you a primary insurance healthcare consultant to a significant other at home: No Do you presently have visiting nurse or other home services: No Alcohol intake: former Patient Tobacco Use Status: Never used Tobacco service: No Physical Exam Const General: cooperative, comfortable and no acute distress Orientation/consciousness: patient oriented x3 GI Other: soft, nontender, nondistended, incisions well healed, no hernia, no masses Neuro General: patient oriented x3 Assessment & Plan Assessment & Plan (1) Status post sleeve gastrectomy: Code(s): Z90.3 - Acquired absence of stomach [part of] Plan Annual labs ordered. Discussed increasing exercise including more designated cardio to help elevate HR. No palpable hernia on today's exam. If pt continues to experience sensations of bulging can image or consult with general surgeon. Again reviewed reflux triggers. RTC [address] Patient is at healthy BMI and is considered stable at this time. I spent a total of 30 minutes reviewing/updating records, examining the patient and counseling the patient on weight management as detailed above. Coding Level of Care Code Est Pt Level 4 (74067) Diagnoses Status post sleeve gastrectomy Z90.3
[2023-03-29 11:36] VITALS: BP 114/62; PULSE 80; TEMP 36.3; O2SAT 100; BMI 24.8
== END 2023-03-29 12:28 | disposition home or self-care (01) ==
PROVIDERS: PCP Registered Nurse; Visit Provider Physician Assistant Surgical
DX: Z71.3 Dietary counseling and surveillance (principal); Z68.24 Body mass index [BMI] 24.0-24.9, adult; Z90.3 Acquired absence of stomach [part of]; Z98.84 Bariatric surgery status
CPT/HCPCS: 99214

== ENCOUNTER → 2023-03-29 11:29 | Outpatient (BNVA) | payer OTHER, SELFPAY | PROVIDERS: PCP Registered Nurse; Visit Provider Physician Assistant Surgical | DX: Z98.84 Bariatric surgery status (principal); Z90.3 Acquired absence of stomach [part of] | CPT/HCPCS: 99212 ==

== ENCOUNTER → 2023-06-28 14:18 | Outpatient (BNVA) | payer OTHER, SELFPAY | PROVIDERS: PCP Registered Nurse; Visit Provider Dietitian, Registered | DX: E66.9 Obesity, unspecified (principal) | CPT/HCPCS: 97803 ==

== ENCOUNTER 2024-10-16 11:50 | Outpatient (AMB) | payer OTHER, SELFPAY ==
--- NOTE | 2024-10-16 11:32 | MHC.OFFVISWM ---
VS Expanded 10/16/24 11:35 Height 5 ft 3 in Weight 145 lb BMI 25.7 Intake Visit Reasons: (TV) PO LSG 11/27/21 Allergies latex Allergy (Mild, Verified 03/29/23 11:38) mild sensitivity w/latex gloves Medication List - Last Reconciled 10/16/24 by TRENTON Burkett [id number] fumarate 600-125-18 mg-unit-mg tabs PO desvenlafaxine succinate ER (Pristiq) 100 mg PO DAILY dexmethylphenidate ER (Focalin XR) 10 mg PO DAILY gfzozmjestwb-alz-ugqh-FA-vit K 45 mg iron- 800 mcg-120 mcg (Bariatric Multivitamins) caps PO pantoprazole 20 mg PO DAILY psyllium husk (with sugar) 2.5 gram (Metamucil Fiber Thin) 2 wafers PO DAILY HPI Comments Details: This?is a?39?yo female who is s/p LSG 11/27/2021. Presents for 3 year post op visit. Weight at last visit on 06/28/2023 was 140 pounds, weight today is 145 pounds, representing a 5 pound weight gain with a BMI today of 25.7.? No complaints of nausea, emesis, abdominal pain, or constipation. She is not as consistent with vitamins due to having to take them 2x a day, 4 pills each. Has some GERD, takes PPI at nighttime which helps. Would like to maintain closer to 135-140lbs. Present meal plan includes: eating mostly whole foods, fewer protein supplements the protein bar she liked has gone out of production Exercise routine includes: walking usually- less in the cold weather [facility] Medical History (Updated 01/19/22 @ 14:52 by Meghan Perez PA-C) Diaphragmatic hernia BMI 35.0-35.9,adult Constipation COVID-19 vaccine series completed Hiatal hernia Heart murmur Nexplanon in place History of COVID-19 Binge-eating disorder, mild Back pain Migraines Depression GERD (gastroesophageal reflux disease) Obstructive sleep apnea on CPAP BMI 36.0-36.9,adult Surgical History Hx of section Hx of colonoscopy Status post sleeve gastrectomy Social History Are you a primary health care recruiter to a significant other at home: No Do you presently have visiting nurse or other home services: No Alcohol intake: former Patient Tobacco Use Status: Never used Tobacco service: No Telehealth Telehealth Telehealth Platform: Telephone Location of provider rendering services: other Location of patient: address on file Patient Identification confirmed using: Name, : Yes Telehealth method: voice only Patient verbally consented to treatment: Yes Patient verbally consented to billing insurance company: Yes Patient informed of any privacy concerns related to visit: Yes Minutes spent on Phone/Video with Pt.: 18 Assessment & Plan Assessment & Plan (1) Overweight: Code(s): E66.3 - Overweight Category: Medical (2) Status post sleeve gastrectomy: Code(s): Z90.3 - Acquired absence of stomach [part of] Category: Medical Plan Discussed different bar options- Powercrunch, Barebells, Industry bars, Aldi brands. Pt knows that in order to lose more weight it would be helpful to restart protein supplements. Labs ordered, can adjust vitamin regimen based on results. RTC in February per pt preference. I spent a total of 30 minutes reviewing/updating records, examining the patient and counseling the patient on weight management as detailed above. Orders: Orders Hemoglobin A1c Today Z90.3 - Acquired absence of stomach [part of] Lipid Panel Today Z90.3 - Acquired absence of stomach [part of] IRON PROFILE Today Z90.3 - Acquired absence of stomach [part of] Comprehensive Met. Panel Today Z90.3 - Acquired absence of stomach [part of] Zinc Today Z90.3 - Acquired absence of stomach [part of] Vitamin B1 Today Z90.3 - Acquired absence of stomach [part of] Ferritin Today Z90.3 - Acquired absence of stomach [part of] Insulin Today Z90.3 - Acquired absence of stomach [part of] Complete Blood Count Auto Diff Today Z90.3 - Acquired absence of stomach [part of] Vitamin B12 and Folate Today Z90.3 - Acquired absence of stomach [part of] C Reactive Protein Today Z90.3 - Acquired absence of stomach [part of] Vitamin A Today Z90.3 - Acquired absence of stomach [part of] TSH reflex Free T4 Today Z90.3 - Acquired absence of stomach [part of] Vitamin D 25-OH Total Today Z90.3 - Acquired absence of stomach [part of]
[2024-10-16 11:35] VITALS: BMI 25.7
== END 2024-10-16 12:02 | disposition home or self-care (01) ==
LOC: HO.HBS 11:50
PROVIDERS: PCP Registered Nurse; Visit Provider Physician Assistant Surgical
DX: E66.3 Overweight (principal); Z68.25 Body mass index [BMI] 25.0-25.9, adult; Z90.3 Acquired absence of stomach [part of]; Z98.84 Bariatric surgery status
CPT/HCPCS: 98013

== ENCOUNTER 2024-10-27 11:02 | Outpatient (REF) | payer OTHER, SELFPAY ==
--- OUTSIDE RECORDS SUMMARY | 2024-10-27 11:58 | XMS_ITS | Continuity of Care Document ---
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 It does not include entries that were removed or entered in error. 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 (hg Active Condition [facility] Routine General Medical Examination at a Health Care Facility * (ICD-9-CM V70.0) Active Condition [facility] Gynecologic Services Intrauterine Device (IUD) Insertion Inactive Condition [facility] Guidance: Concerns About Unsafe Sexual Practices Inactive Condition [facility] backache Active Condition [facility] visit for: screening exam pulmonary tuberculosis Active Condition [facility] visit for: student physical Active Condition [facility] Need For Vaccination Hepatitis A Active Condition [facility] anxiety Active Condition [facility] Inquiry And Counseling: Contraceptive Practices Active Condition [facility] visit for: screening exam malignant neoplasm breast Active Condition [facility] dermatitis Active Condition [facility] Laboratory Studies Active Condition [facility] visit for: screening exam lipoid disorders Active Condition [facility] visit for: screening exam thyroid disorders Active Condition [facility] Test Inactive Condition [facility] routine pelvic exam Inactive Condition D oD upper respiratory infection Active Condition [facility] otitis media both ears Active Condition [facility] pharyngitis Active Condition [facility] Need For Vaccination Against Influenza Inactive Condition [facility] tendonitis posterior tibial right Active Condition [facility] Patient Education Inactive Condition [facility] ankle sprain Inactive Condition pt to w ear supportive shoes. Gave exercises from MD consult, let pain be guide, if it hurts don't do it. Discussed that it can take 6 weeks or so to improve. Pt to f/u if not improving at all over next 4 weeks sooner if much worse DoD dyspareunia Active Condition [facility] Cervical Pap Smear Active Condition [facility] visit for: screening exam venereal disease Active Condition screened du e to age [facility] routine gynecological exam with cervical pap smear Inactive Condition [facility] Patient Counseling: Inactive Condition D oD normal Active Condition haider eduled for ripening MAY 20 on labor deck. [facility] Patient Education - Preparation For Childbirth Active Condition [facility] routine checkup (6 - 42 wk) Active Condition DoD Active Condition [facility] Supervision Of Normal First Active Condition [facility] visit for: administrative purpose Inactive Condition Agree with above assessment and plan. [facility] Medications Combined list of outpatient medications from Department of Defense and Veterans Affairs facilities.Medications provided include 1) outpatient medications from the last 15 months, and 2) patient-reported medications. Medication Details Route Status Patient Instructions Prescription Expires Prescription Number Last Dispense Date Ordering Provider Order Date Order Qty Source BUPROPION HCL 150MG 12HR TAB,SA TAKE ONE TABLET BY MOUTH TWICE A DAY ORAL ACTIVE HEATHERNER,P ETRA 2009 COLTONLIAM Hernanedz [facility] SERTRALINE HCL 100MG TAB TAKE 1.5 TABLETS BY MOUTH EVERY DAY ORAL ACTIVE LANGNER,P ETRA 2009 COLTONLIAM Hernandez [facility] ZOLPIDEM TARTRATE 10MG TAB TAKE ONE TABLET BY MOUTH AT BEDTIME NEEDED ORAL ACTIVE LANGNER,P ETRA 2009 [facility] Maribell REYNA [facility] Allergies, Adverse Reactions, Alerts Combined list of allergies from Department of Defense and Veterans Affairs facilities. It does not include entries that were removed or entered in error. Substance Category Reaction Severity Reaction type Status Date Reported Comments Source No Known Allergies Drug allergy (disorder) active 08/01/2008 [facility] Immunizations Combined list of available immunizations from the Department of Defense and Veterans Affairs facilities. Immunization Series Date Given Administered By Site Reaction Lot Number CVX Code Drug Director Mba Status Comments Source tuberculin skin test; purified protein derivative solution, intradermal 0 2008 ROBINA, JEWELL A [id number] Other (OTH) complet ed tuberculi n skin test; purified protein derivativ e solution, intraderm al DoD hepatitis A vaccine, adult dosage 1 2008 ZISTEPHEN, JEWELL A [id number] 52 [employer] (SKB) complet ed hepatitis A vaccine, adult dosage [facility] influenza virus vaccine, whole virus 1 2007 SUSANA LANDIN [id number] Other (OTH) complet ed influenza virus vaccine, whole virus DoD TDAP 2006 115 complet ed [facility] tetanus and diphtheria toxoids, adsorbed, preservative free, for adult use (2 Lf of tetanus toxoid and 2 Lf of diphtheria toxoid) 0 2003 09 Transcribed (TRS) complet ed tetanus and diphtheri a toxoids, adsorbed, preservat juan miguel free, for adult use (2 Lf of tetanus toxoid and 2 Lf of diphtheri a toxoid) DoD hepatitis B vaccine, pediatric or pediatric/ado lescent dosage 3 1998 08 Transcribed (TRS) complet ed hepatitis B vaccine, pediatric or pediatric /adolesce nt dosage DoD hepatitis B vaccine, pediatric or pediatric/ado lescent dosage 2 1997 08 Transcribed (TRS) complet ed hepatitis B vaccine, pediatric or pediatric /adolesce nt dosage DoD hepatitis B vaccine, pediatric or pediatric/ado lescent dosage 1 1997 08 Transcribed (TRS) complet ed hepatitis B vaccine, pediatric or pediatric /adolesce nt dosage DoD measles, mumps and rubella virus vaccine 2 1991 03 Transcribed (TRS) complet ed measles, mumps and rubella virus vaccine DoD poliovirus vaccine, inactivated 5 1991 10 Transcribed (TRS) complet ed polioviru s vaccine, inactivat ed DoD diphtheria, tetanus toxoids and acellular pertu is vaccine 5 1991 20 Transcribed (TRS) complet ed diphtheri a, tetanus toxoids and acellular pertussis vaccine DoD poliovirus vaccine, inactivated 4 1987 10 Transcribed (TRS) complet ed polioviru s vaccine, inactivat ed DoD diphtheria, tetanus toxoids and acellular pertu is vaccine 4 1987 20 Transcribed (TRS) complet ed diphtheri a, tetanus toxoids and acellular pertussis vaccine DoD measles, mumps and rubella virus vaccine 1 1987 03 Transcribed (TRS) complet ed measles, mumps and rubella virus vaccine DoD poliovirus vaccine, inactivated 3 1986 10 Transcribed (TRS) complet ed polioviru s vaccine, inactivat ed DoD diphtheria, tetanus toxoids and acellular pertu is vaccine 3 1986 20 Transcribed (TRS) complet ed diphtheri a, tetanus toxoids and acellular pertussis vaccine DoD poliovirus vaccine, inactivated 2 1986 10 Transcribed (TRS) complet ed polioviru s vaccine, inactivat ed DoD diphtheria, tetanus toxoids and acellular pertu is vaccine 2 1986 20 Transcribed (TRS) complet ed diphtheri a, tetanus toxoids and acellular pertussis vaccine DoD trivalent poliovirus vaccine, live, oral 1 1985 02 Transcribed (TRS) complet ed trivalent polioviru s vaccine, live, oral DoD diphtheria, tetanus toxoids and acellular pertu is vaccine 1 1985 20 Transcribed (TRS) complet ed diphtheri a, tetanus toxoids and acellular pertussis vaccine DoD Encounters Combined list of: 1) Encounters from Department of [facility] facilities going backup to the last 18 months, not all VA inpatient encounters are included; 2) Encounters from the Department of Defense facilities going backup to 280 months. Location Location Details Encounter Type Encounter Number Reason For Visit Attending Provider ADM Date DC Date Status Disposition Source [facility]) TELE CONSULT [id number] Nurse Advise Line/Phyllis diggs/ PHILIP Chandra 01/08 [facility]( [facility]) [facility]( Nurse Clinic) TELE CONSULT [id number] TRANSFE R IN PT BRISEYDAFebruary R 01/10 [facility]( Nurse Clinic) [facility]( Nurse Clinic) OUTPATIENT [id number] INT OB SHENA REINA 01/11 Released w/o Limitations [facility]( Nurse Clinic) [facility]) OUTPATIENT [id number] new OB 20 weeks transfe ring in [place] in SINK JESENIA D 01/13 Released w/o Limitations [facility]( [facility]) [facility]) TELE CONSULT [id number] call back SINK, JESENIA D 01/19 [facility]( White) [facility]) OUTPATIENT [id number] routine OB 27 weeks SINKJESENIA D 02/28 Released w/o Limitations [facility]( White) [facility]( White) OUTPATIENT [id number] 32 WEEK ROQUE (OB PROV SINK) JESENIA CHANG D 04/06 Released w/o Limitations [facility]( White) [facility]) OUTPATIENT [id number] LIDIA Bolden Dean 04/28 Released w/o Limitations [facility]( ObGyn Clinic) [facility]( White) OUTPATIENT [id number] 36 WEEK ROQUE JESENIA CHANG D 05/04 Released w/o Limitations [facility]( White) [facility]( White) OUTPATIENT [id number] ROQUE 40wks (sink OB transfe r [place]) BURKE FLORES 05/31 Released w/o Limitations [facility]( White) [facility] DIRECT TO [facility] MTF FROM OTHER THAN ER OR APU [facility]-[id number] 2 TG MISTRY 06/04 DISCHARGED HOME [facility]( Blue) TELE CONSULT [id number] A] Nurse advice call; Was trans to you from [facility] Toni, foul smell vag dischar SHENA Jeffries 06/10 [facility]( Blue) [facility]( Blue) OUTPATIENT [id number] 6 wk post LAVINIA BUTLER 08/05 Released w/o Limitations [facility]( Blue) [facility]( Blue) OUTPATIENT [id number] Ankle Pain LAVINIA BUTLER 08/23 Released w/o Limitations [facility]( Blue) [facility]( Blue) TELE CONSULT [id number] i] nurse advice call; appt booked GRIS JORGE 05/21 [facility]( Blue) [facility]) OUTPATIENT [id number] PAIN IN RIGHT LEG TO THIGH X 2 WEEKS DEBKUSUM ALEGRE 05/21 Released w/o Limitations [facility]( [facility]) [facility] Medicine n) OUTPATIENT [id number] kenia SUSANA LANDIN Julia 08/01 Released w/o Limitations [facility]( Family Medicin e Cln) [facility]( Blue) TELE CONSULT [id number] I) Nurse Advice- sore throat, cold symptom s/OPAC ALICIA BERMEO 09/19 [facility]( Blue) [facility]( Blue) OUTPATIENT [id number] cough, sore throat, cold times 3 days BEATRICE VERDUZCO 09/19 Released w/o Limitations [facility]( Blue) [facility]( Blue) OUTPATIENT [id number] pap smear/n o kids allowed at appt BEATRICE VERDUZCO 11/14 Released w/o Limitations [facility]( Blue) [facility]) OUTPATIENT [id number] breast exam f/u DENNY PURDY 11/23 Released w/o Limitations [facility]( [facility] Medic[facility] e Cln) [facility]) OUTPATIENT [id number] Control DENNY PURDY 12/14 Released w/o Limitations [facility]( Family Medicin e Cln) [facility] Medicine n) OUTPATIENT [id number] fatigue DENNY PURDY 01/02 Released w/o Limitations [facility]( Family Medicin e Cln) [facility] Medicine n) OUTPATIENT [id number] celexa DENNY PURDY 02/01 Released w/o Limitations [facility]( Family Medicin e Cln) [facility](Fa brandie Medicine Cln) OUTPATIENT [id number] SUSANA Delacruz 02/13 Released w/o Limitations [facility]( Family Medicin e Cln) [facility](Fa brandie Medicine Cln) OUTPATIENT [id number] [facility] DENNY PURDY 02/20 Released w/o Limitations [facility]( Family Medicin e Cln) [facility](Fa brandie Medicine Cln) [facility]PAT[facility] [id number] [facility]/26 Released w/o Limitations [facility]( Family Medicin e Cln) [facility](Fa brandie Medicine Cln) OUTPATIENT [id number] pe/no pap [facility] DENNY PURDY 03/08 Released w/o Limitations [facility]( Family Medicin e Cln) [facility](Fa brandie Medicine Cln) TELE CONSULT [id number] JEYSON RAMOS 03/13 [facility]( Family Medicin e Cln) [facility](Ob /Interlocker Cln) OUTPATIENT [id number] iud consult BRITTA LISA 03/21 Released w/o Limitations [facility]( Bilingual Receptionist Cln) [facility](Fa brandie Medicine Cln) OUTPATIENT [id number] IUD inserti on JEYSON RAMOS 03/27 Released w/o Limitations [facility]( Family Medicin e Cln) [facility](Fa brandie Medicine Cln) OUTPATIENT [id number] [facility] DENNY PURDY 04/10 Released w/o Limitations [facility]( Family Medicin e Cln) Procedures Combined list of: 1) Procedures from Department of Veterans Affairs facilities going back up to thelast 18 months, not all VA non-surgical procedures are included; 2) All procedures from the Department of Defense facilities. Procedure Procedure Type Code Date Perfomer Comments Sourc e INSERTION OF INTRAUTERINE DEVICE (IUD) 03/27/2009 DoD SKIN TEST; TUBERCULOSIS, INTRADERMAL 02/26/2009 [facility] HEPATITIS A VACCINE (HEPA), ADULT DOSAGE, FOR INTRAMUSCULAR USE 02/13/2009 [facility] INFLUENZA VIRUS VACCINE, TRIVALENT (IIV3), SPLIT VIRUS, 0.5 ML DOSAGE, FOR INTRAMUSCULAR USE 08/01/2008 DoD WET ASTRID, INCLUDING PREPARATIONS OF VAGINAL, CERVICAL OR SKIN SPECIMENS 08/05/2007 [facility] INJECTION OF ANESTHETIC INTO SPINAL CANAL FOR ANALGESIA 06/06/2007 [facility] EKG (SCALP) 06/06/2007 [facility] OTHER ARTIFICIAL RUPTURE OF MEMBRANES 06/06/2007 [facility] OTHER DIAGNOSTIC PROCEDURES ON FETUS AND AMNION 06/06/2007 [facility]D POSTOPERATIVE FOLLOW-UP VISIT, NORMALLY INCLUDED IN THE SURGICAL PACKAGE, INDICATE THAT EVALUATION & MANAGEMENT SERVICE WAS PERFORMED DURING A POSTOPERATIVE PERIOD REASON RELATED ORIGINAL PROCEDURE 06/05/2007 [facility] VAGINAL DELIVERY ONLY (WITH OR WITHOUT EPISIOTOMY AND/OR FORCEPS); 06/04/2007 [facility] UNLISTED PROCEDURE, MATERNITY CARE AND DELIVERY 06/03/2007 [facility] GLUCOSE; BLOOD, REAGENT STRIP 05/30/2007 [facility] NON-STRESS TEST 05/22/2007 [facility] SUBSEQ CARE VISIT () [EXCLS:PATIENTS WHO ARE SEEN FOR A CONDITION UNREL TO / CARE (EG,AN UP RESPIR INFECT;PATIENTS SEEN FOR CONSULTATION ONLY,NOT FOR CONT CARE)] 05/04/2007 [facility] SUBSEQ CARE VISIT () [EXCLS:PATIENTS WHO ARE SEEN FOR A CONDITION UNREL TO / CARE (EG,AN UP RESPIR INFECT;PATIENTS SEEN FOR CONSULTATION ONLY,NOT FOR CONT CARE)] 04/06/2007 [facility] UNLISTED PROCEDURE, MATERNITY CARE AND DELIVERY 03/11/2007 [facility] SUBSEQ CARE VISIT () [EXCLS:PATIENTS WHO ARE SEEN FOR A CONDITION UNREL TO / CARE (EG,AN UP RESPIR INFECT;PATIENTS SEEN FOR CONSULTATION ONLY,NOT FOR CONT CARE)] 02/28/2007 DoD WET ASTRID, INCLUDING PREPARATIONS OF VAGINAL, CERVICAL OR SKIN SPECIMENS 02/22/2007 DoD SUBSEQ CARE VISIT () [EXCLS:PATIENTS WHO ARE SEEN FOR A CONDITION UNREL TO / CARE (EG,AN UP RESPIR INFECT;PATIENTS SEEN FOR CONSULTATION ONLY,NOT FOR CONT CARE)] 01/13/2007 DoD Skin Test Anergy Tuberculin Intradermal Skin Test Anergy Tuberculin Intradermal 83630 02/26/2009 JEWELL QUARLES [facility] Hepatitis A Vaccine Adult Dosage (Intramuscular Use) Hepatitis A Vaccine Adult Dosage (Intramuscular Use) 52833 02/13/2009 STEPHEN JEWELL MADI [facility] Immunization Administration By Injection, One Vaccine Immunization Administration By Injection, One Vaccine 75005 02/13/2009 JEWELL QUARLES [facility] Influenza Split Virus Vaccine 0.5mL Dosage Intramuscular 08/01/2008 PHOENIX LANDIN Immunization Administration By Injection, One Vaccine Immunization Administration By Injection, One Vaccine [id number] 08/01/2008 SUSANA LANDIN Screening papanicolaou smear; obtaining, preparing and conveyance of cervical or vaginal smear to laboratory 08/05/2007 LAVINIA BUTLER All pota ium hydroxide (zulay) preparations 08/05/2007 LAVINIA BUTLER Wet astrid, including preparations of vaginal, cervical or skin specimens 08/05/2007 LAVINIA BUTLER OB Services Antepartum Care Only Subsequent Single Visit OB Services Antepartum Care Only Subsequent Single Visit [id number] 05/04/2007 JESENIA CHANG OB Services Antepartum Care Only Subsequent Single Visit OB Services Antepartum Care Only Subsequent Single Visit [id number] 04/06/2007 JESENIA CHANG OB Services Antepartum Care Only Subsequent Single Visit OB Services Antepartum Care Only Subsequent Single Visit 0502F 02/28/2007 JESENIA CHANG OB Services Antepartum Care Only Subsequent Single Visit OB Services Antepartum Care Only Subsequent Single Visit 0502F 01/13/2007 JESENIA CHANG Social History Combined list of available smoking, tobacco, and other social history from Department of Defense and Veterans Affairs facilities. Social History Type Response Date Comment Sourc e Tobacco smoking status NHIS LIFETIME NON-USER OF TOBACCO 01/08/2010 COLTON GARCIA [facility] This section is an empty social history section. [facility]
[2024-10-27 14:12] LABS: MANUAL DIFF FLAG NO
[2024-10-27 14:25] LABS: Basophils Percent Auto 0.6 % (0-2); Eosinophils Absolute Auto 0.1 X10*3/uL (0.0-0.4); Eosinophils Percent Auto 1.6 % (0-4); Hematocrit 40.1 % (37.0-47.0); Hemoglobin 13.6 g/dl (12.0-16.0); Imm Gran Abs Auto 0.01 X10*3/uL (0.00-0.03); Imm Gran Pct Auto 0.2 % (0.0-0.4); Lymphocytes Absolute Auto 1.8 X10*3/uL (1.2-4.9); Lymphocytes Percent Auto 35.4 % (20-40); Mean Corpuscular HGB Conc 33.9 g/dl (31.0-35.0); Mean Corpuscular Hemoglobin 30.4 pg (27.0-33.0); Mean Corpuscular Volume 89.5 fL (80.0-98.0); Mean Platelet Volume 9.9 fL (9.4-12.3); Monocytes Absolute Auto 0.4 X10*3/uL (0.1-1.2); Monocytes Percent Auto 6.8 % (2-11); Neutrophils Absolute Auto 2.8 x10*3/uL (2.0-8.3); Neutrophils Percent Auto 55.4 % (45-73); Platelet Count 219 X10*3/uL (160-400); Red Blood Count 4.48 X10*6/uL (4.20-5.50); White Blood Count 5.1 X10*3/uL (4.8-10.8)
[2024-10-27 14:40] LABS: Estimated Average Glucose 103 mg/dL; Hemoglobin A1C 116.2831 umol/L; Hemoglobin A1c % 5.2 % (<6.0); Total Hemoglobin (HGBA1C) 3540.0865 umol/L
[2024-10-27 15:00] LABS: Alanine Aminotransferase 15 U/L (0-31); Albumin Level 4.2 g/dL (3.5-5.0); Alkaline Phosphatase 50 U/L (39-117); Anion Gap 9 (12-20); Aspartate Amino Transferase 19 U/L (5-31); Bilirubin Total 0.4 mg/dL (0.0-1.0); Blood Urea Nitrogen 10 mg/dL (9-16); C Reactive Protein < 0.04 mg/dL (< or = 0.50); Calcium 8.9 mg/dL (8.4-10.2); Carbon Dioxide 26 mmol/L (22-29); Chloride 106 mmol/L (96-108); Cholesterol 177 mg/dL (<200); Estimated Glomerular Filt Rate > 60; Glucose Random 86 mg/dL (60-115); HDL Cholesterol 46 mg/dL (>40); Iron 135 mcg/dL (30-160); LDL Cholesterol Calculated 110 mg/dL (<100); Percent Iron Saturation 54 % (15-50); Potassium 3.7 mmol/L (3.3-5.1); Sodium 137 mmol/L (135-145); Total Iron Binding Capacity 249 mcg/dL (228-428); Total Protein 6.8 g/dL (6.5-8.0); Triglycerides 109 mg/dL (<150); Unsaturated Iron Binding 114 ug/dL
[2024-10-27 15:01] LABS: Ferritin 183 ng/mL (10-122); Insulin 6 uU/mL (2-29); TSH reflex Free T4 0.92 uIU/mL (0.32-4.0); Vitamin D 25-OH Total 55.5 ng/mL (>30)
[2024-10-27 15:12] LABS: Folate 7.4 ng/mL (> or = 4.0); Vitamin B12 653 pg/mL (200-900)
== END 2024-10-27 11:03 | disposition home or self-care (01) ==
LOC: HO.WFDLDS 11:02
PROVIDERS: Visit Provider Physician Assistant Surgical
DX: Z90.3 Acquired absence of stomach [part of] (principal); Z13.6 Encounter for screening for cardiovascular disorders; Z13.1 Encounter for screening for diabetes mellitus
CPT/HCPCS: 36415; 80053; 80061; 82306; 82607; 82728; 82746; 83036; 83525; 83540; 84425; 84443; 84590; 85025; 86140